=== PATIENT | male | born 1965 | race African-American/Black ===

== ENCOUNTER → 2019-08-07 | Outpatient (CLI) | payer OTHER | END | disposition home or self-care (01) | LOC: RADPV 12:17 | PROVIDERS: ATTEND Orthopaedic Surgery | DX: M47.817 Spondylosis without myelopathy or radiculopathy, lumbosacral region (principal); M51.27 Other intervertebral disc displacement, lumbosacral region; M13.80 Other specified arthritis, unspecified site | CPT/HCPCS: 72100 ==